=== PATIENT | female | born 1960 | race African-American/Black ===

== ENCOUNTER 2016-12-03 12:45 | Outpatient (RCR) | payer OTHER | END 2016-12-18 | disposition home or self-care (01) | LOC: PTY 12:45 | DX: Z96.642 Presence of left artificial hip joint (principal) ==

== ENCOUNTER 2016-12-19 10:45 | Outpatient (RCR) | payer OTHER | END 2017-01-17 | disposition home or self-care (01) | LOC: PTY 10:45 | DX: Z96.642 Presence of left artificial hip joint (principal) | CPT/HCPCS: 97110; 97140; G0283 ==

== ENCOUNTER 2017-01-23 09:53 | Outpatient (RCR) | payer OTHER | END 2017-02-17 | disposition home or self-care (01) | LOC: PTY 09:53 | DX: Z96.642 Presence of left artificial hip joint (principal) | CPT/HCPCS: 97110; 97140; G0283 ==

== ENCOUNTER 2017-02-18 09:30 | Outpatient (RCR) | payer OTHER | END 2017-03-20 | disposition home or self-care (01) | LOC: PTY 09:30 | DX: L02.416 Cutaneous abscess of left lower limb (principal); Z96.642 Presence of left artificial hip joint | CPT/HCPCS: 97110; G0283 ==

== ENCOUNTER 2017-08-29 12:30 | Outpatient (RCR) | payer OTHER | END 2017-09-17 | disposition home or self-care (01) | LOC: PTY 12:30 | DX: Z96.649 Presence of unspecified artificial hip joint (principal) ==

== ENCOUNTER 2017-09-29 09:12 | Outpatient (RCR) | payer OTHER | END 2017-10-18 | disposition home or self-care (01) | LOC: PTY 09:12 | DX: Z96.649 Presence of unspecified artificial hip joint (principal) ==

== ENCOUNTER 2017-10-22 09:15 | Outpatient (RCR) | payer OTHER | END 2017-11-17 | disposition home or self-care (01) | LOC: PTY 09:15 | DX: M25.652 Stiffness of left hip, not elsewhere classified (principal); Z96.642 Presence of left artificial hip joint ==

== ENCOUNTER 2017-11-21 08:43 | Outpatient (RCR) | payer OTHER | END 2017-12-18 | disposition home or self-care (01) | LOC: PTY 08:43 | DX: M25.652 Stiffness of left hip, not elsewhere classified (principal); Z96.642 Presence of left artificial hip joint ==

== ENCOUNTER → 2018-03-20 | Outpatient (RCR) | payer OTHER | END | disposition home or self-care (01) | LOC: PTY 09:45 | DX: M25.652 Stiffness of left hip, not elsewhere classified (principal); Z96.642 Presence of left artificial hip joint ==

== ENCOUNTER 2018-03-25 08:45 | Outpatient (RCR) | payer OTHER | END 2018-04-19 | disposition home or self-care (01) | LOC: PTY 08:45 | DX: Z47.1 Aftercare following joint replacement surgery (principal); Z96.642 Presence of left artificial hip joint ==